=== PATIENT | female | born 1990 | race Hispanic/Latino ===

== ENCOUNTER 2017-04-24 12:29 | Emergency (ER) | payer SELFPAY ==
[2017-04-24 12:49] VITALS: BP 130/86
--- NOTE | 2017-04-24 12:51 | Emergency Department Report ---
Chief Complaint: Extremity Injury, Upper Stated Complaint: RT ARM PAIN Time Seen by Provider: 04/24/17 12:47 - HPI History of Present Illness: PT states she was at work on Sunday and she lifted a 25 lb bag of sugar. PT states an hour later, she had pain to R fa - ROS Review of Systems: - f/ c - Exam Vital Signs: Vital Signs 04/24/17 12:44 Temperature 98.3 F Pulse Rate 98 H Respiratory 18 Rate Blood Pressure 130/86 O2 Sat by Pulse 96 Oximetry Physical Exam: pt looks well, non toxic tenderness to R fa MSE screening note: Focused history and physical exam performed. Due to findings the following was ordered: xr ED Disposition for MSE Condition: Stable
--- NOTE | 2017-04-24 13:38 | XRay Report ---
RIGHT FOREARM: History: Pain after trauma. AP and lateral views of the forearm demonstrate normal mineralization and contours for this patient's age. No destructive changes are noted and the adjacent soft tissues are normal. IMPRESSION: Normal right forearm.
[2017-04-24] MEDS ORDERED: TORADOL IM ONE (14:05)
[2017-04-24] MEDS ORDERED: FLEXERIL PO ONE (14:05)
[2017-04-24] MEDS ORDERED: NORCO 7.5/325 PO ONE (14:05)
--- NOTE | 2017-04-24 15:20 | Emergency Department Report ---
Entered by JAKE MORIN, acting as scribe for CATHIE GAN PA. ED Upper Extremity Inj HPI - General Chief Complaint: Extremity Injury, Upper Stated Complaint: RT ARM PAIN Time Seen by Provider: 04/24/17 12:47 Source: patient Mode of arrival: Ambulatory Limitations: No Limitations - History of Present Illness Initial Comments: 27 year old female presents to the ED with c/o right arm pain for 3 days. Patient states she lifted a heavy box of sugar at work and about 20 minutes later she felt pain to her right forearm. Patient describes pain as sharp radiating to her posterior forearm. Patient denies , excessive bleeding , and trauma. LMP was about 2 years ago because of control in arm. patient has normal radial pulses on exam. MD Complaint: Injury to:: right, arm, wrist -: days(s) (3) Other Extremity Injury: Wrist: Right, Forearm: Right Other Injuries: none Handedness: right Place: work Severity scale (0 -10): 4 Improves With: none Worsens With: movement of extremity Context: other (lifting) Associated Symptoms: denies other symptoms, heard/felt popping sensat. denies: weakness, numbness, neck pain, suspects foreign body, nausea/vomiting - Related Data Home Medications Medication Instructions Recorded Confirmed Last Taken medroxyPROGESTERone ACETA (NF) 09/20/14 09/20/14 06/29/14 [Depo-Provera] Previous Rx's Medication Instructions Recorded Last Taken Type Clindamycin [Cleocin] 300 mg PO TID #21 capsule 09/21/14 Unknown Rx HYDROcodone/ACETAMINOPHEN [[place] 1 each PO Q6H PRN #14 tablet 09/21/14 Unknown Rx 5/325 Tablet] Promethazine [Phenergan] 25 mg PO Q6H PRN #14 tablet 09/21/14 Unknown Rx Ibuprofen [Motrin 800 MG tab] 800 mg PO Q8HR PRN #30 tablet 03/17/16 Unknown Rx Sulfamethoxazole/Trimethoprim 1 each PO BID #20 tablet 03/17/16 Unknown Rx [Bactrim DS TAB] Ketorolac [Toradol] 10 mg PO Q6H PRN #20 tablet 04/24/17 Unknown Rx methOCARBAMOL [Robaxin TAB] 500 mg PO BID #20 tab 04/24/17 Unknown Rx Allergies Allergy/AdvReac Type Severity Reaction Status Date / Time No Known Allergies Allergy Verified 03/17/16 18:55 ED Review of Systems Comment: All other systems reviewed and negative Constitutional: denies: chills, fever Eyes: denies: eye pain, eye discharge, vision change ENT: denies: ear pain, throat pain, dental pain Respiratory: denies: cough, shortness of breath, wheezing Cardiovascular: denies: chest pain, palpitations Endocrine: denies: excessive sweating Gastrointestinal: denies: abdominal pain, nausea, vomiting, diarrhea, constipation Genitourinary: denies: urgency, dysuria, frequency Musculoskeletal: denies: back pain, joint swelling, arthralgia Skin: denies: rash, lesions Neurological: denies: headache, weakness, numbness, paresthesias, abnormal gait , vertigo Psychiatric: denies: anxiety, depression Hematological/Lymphatic: denies: easy bleeding ED Past Medical Hx - Past Medical History Previous Medical History?: Yes Hx Asthma: Yes Additional medical history: Left breast cellulitis, Uterine fibroids, Cyst on left ovary, Boils under arm - Surgical History Past Surgical History?: Yes Additional Surgical History: c section ,tonsilectomy,ovarian cyst - Social History Smoking Status: Current Every Day Smoker Substance Use Type: Alcohol - Medications Home Medications: Home Medications Medication Instructions Recorded Confirmed Last Taken Type medroxyPROGESTERone ACETA (NF) 09/20/14 09/20/14 06/29/14 History [Depo-Provera] Clindamycin [Cleocin] 300 mg PO TID #21 capsule 09/21/14 Unknown Rx HYDROcodone/ACETAMINOPHEN [[place] 1 each PO Q6H PRN #14 tablet 09/21/14 Unknown Rx 5/325 Tablet] Promethazine [Phenergan] 25 mg PO Q6H PRN #14 tablet 09/21/14 Unknown Rx Ibuprofen [Motrin 800 MG tab] 800 mg PO Q8HR PRN #30 tablet 03/17/16 Unknown Rx Sulfamethoxazole/Trimethoprim 1 each PO BID #20 tablet 03/17/16 Unknown Rx [Bactrim DS TAB] Ketorolac [Toradol] 10 mg PO Q6H PRN #20 tablet 04/24/17 Unknown Rx methOCARBAMOL [Robaxin TAB] 500 mg PO BID #20 tab 04/24/17 Unknown Rx ED Physical Exam - General Limitations: No Limitations General appearance: alert, in no apparent distress - Head Head exam: Present: atraumatic, normocephalic - Eye Eye exam: Present: normal appearance, PERRL, EOMI Pupils: Present: normal accommodation. Absent: irregular - ENT ENT exam: Present: normal exam, mucous membranes moist - Neck Neck exam: Present: normal inspection, full ROM. Absent: tenderness, meningismus - Respiratory Respiratory exam: Present: normal lung sounds bilaterally. Absent: respiratory distress, wheezes, rales, rhonchi, stridor - Cardiovascular Cardiovascular Exam: Present: regular rate, normal rhythm. Absent: systolic murmur, diastolic murmur, rubs, gallop - GI/Abdominal GI/Abdominal exam: Present: soft. Absent: distended, tenderness - Extremities Exam Extremities exam: Present: full ROM (limited ROM due to pain), tenderness (mild tenderness to posterior forearm), other (mild crepidus present to posterior forearm). Absent: pedal edema - Expanded Upper Extremity Exam Right General: Present: normal inspection Shoulder Exam: Present: normal inspection, full ROM. Absent: tenderness, swelling Upper Arm exam: Present: normal inspection, full ROM. Absent: tenderness, swelling Elbow exam: Present: full ROM. Absent: tenderness, swelling, ecchymosis Forearm Wrist exam: Present: normal inspection, full ROM. Absent: tenderness, swelling, abrasion, laceration Hand Wrist exam: Present: normal inspection, full ROM. Absent: tenderness Vascular: Present: normal capillary refill, radial pulse - Back Exam Back exam: Present: normal inspection, full ROM. Absent: tenderness - Neurological Exam Neurological exam: Present: alert, oriented X3, normal gait - Psychiatric Psychiatric exam: Present: normal affect, normal mood - Skin Skin exam: Present: warm, dry, intact, normal color. Absent: rash ED Course Vital Signs 04/24/17 12:44 Temperature 98.3 F Pulse Rate 98 H Respiratory 18 Rate Blood Pressure 130/86 O2 Sat by Pulse 96 Oximetry ED Medical Decision Making - Radiology Data Radiology results: report reviewed XR right forearm normal right forearm/study. - Medical Decision Making 27 year old female presents to ED with right forearm pain. patient has normal xray study per radiologist. patient has mild crepidus on exam and mild tenderness. patient given NSAIDS and muscle relaxants and is to follow up with Dr. cassia hart MD within 2 days. patient states there is no chance of due to implantable control in upper arm. ED Disposition Clinical Impression: Forearm contusion Qualifiers: Encounter type: initial encounter Laterality: right Qualified Code(s): S50.11XA - Contusion of right forearm, initial encounter Disposition: TO HOME OR SELFCARE Is pt being admited?: No Does the pt Need Aspirin: No Condition: Stable Prescriptions: Ketorolac [Toradol] 10 mg PO Q6H PRN #20 tablet PRN Reason: Pain methOCARBAMOL [Robaxin TAB] 500 mg PO BID #20 tab Referrals: JOHN STRICKLAND MD [Staff Physician] - 2-3 Days Forms: Work/School Release Form(ED) This documentation as recorded by the MIKEL barrios PEARL,accurately reflects the service I personally performed and the decisions made by ,CATHIE GAN PA.
== END 2017-04-24 15:12 | disposition home or self-care (01) ==
LOC: ED 12:29
DX: S50.11XA Contusion of right forearm, initial encounter (principal); J45.909 Unspecified asthma, uncomplicated; F17.200 Nicotine dependence, unspecified, uncomplicated; X50.9XXA Other and unspecified overexertion or strenuous movements or postures, initial encounter; Y93.9 Activity, unspecified; Y92.9 Unspecified place or not applicable; Y99.9 Unspecified external cause status
CPT/HCPCS: 73090; 96372; 99283; J1885

== ENCOUNTER 2017-07-22 17:57 | Emergency (ER) | payer SELFPAY ==
[2017-07-22 19:09] LABS: Anion Gap 19 mmol/L; BUN/Creatinine Ratio 13; Blood Urea Nitrogen 8 mg/dL (7-17); Calcium 9.6 mg/dL (8.4-10.2); Carbon Dioxide 23 mmol/L (22-30); Glucose 100 mg/dL (65-100); Potassium 4.3 mmol/L (3.6-5.0); Sodium 138 mmol/L (137-145)
[2017-07-22 19:23] LABS: Bacteria,Urine 2+ /HPF (Negative); Bilirubin,Urine NEG (Negative); Blood,Urine MOD (Negative); Ketones,Urine 20 mg/dL (Negative); Leukocyte Esterase,Urine LG (Negative); Mucus,Urine 2+ /HPF; Nitrite,Urine NEG (Negative)
[2017-07-22 19:28] LABS: Basophils % (Auto) 0.5 % (0.0-1.8); Eosinophils % (Auto) 0.1 % (0.0-4.3); Hematocrit 45.6 % (30.3-42.9); Hemoglobin 15.8 gm/dl (10.1-14.3); Mean Corpuscular HGB Conc 35 % (30-34); Mean Corpuscular Hemoglobin 33 pg (28-32); Mean Corpuscular Volume 94 fl (79-97); Platelet Count 218 K/mm3 (140-440); Red Blood Count 4.84 M/mm3 (3.65-5.03); Red Cell Distribution Width 13.1 % (13.2-15.2); White Blood Count 19.1 K/mm3 (4.5-11.0)
[2017-07-22] MEDS ORDERED: NACL 0.9% 1000 ML 1,000 ML IV ONE (20:06)
[2017-07-22] MEDS ORDERED: ROCEPHIN/NS 1 GM/50 ML 1 GM/50 ML BAG IV ONE (20:06)
[2017-07-22] MEDS ORDERED: MOTRIN PO ONE (20:06)
[2017-07-22] MEDS ORDERED: ZOFRAN IV ONE (20:06)
[2017-07-22] MEDS ORDERED: TYLENOL PO ONE (20:06)
--- NOTE | 2017-07-22 21:42 | Emergency Department Report ---
ED Fever HPI - General Chief Complaint: Fever Stated Complaint: FEVER Time Seen by Provider: 07/22/17 19:26 - History of Present Illness Initial Comments: 27-year-old female past medical history ovarian cysts, asthma, smoking, obesity , uterine fibroids presents with complaint of 2-3 days of worsening nasal congestion. Patient intermittently complains of subjective fevers and chills and also dark colored urine. Patient denies vaginal discharge otherwise. Has nasal voice and is complaining of active congestion in her nostrils. Patient denies any recent travel denies any vomiting but does state that she feels decreased appetite. Patient is awake alert and oriented 3. Patient is accompanied by family members at bedside. Patient states she might have had slight right-sided flank pain earlier today but states that it has since resolved. Timing/Duration: intermittent Fever Severity/Quality: low grade Associated Symptoms: denies symptoms ED Review of Systems ROS: Stated complaint: FEVER Other details as noted in HPI Constitutional: fever, malaise. denies: chills Eyes: denies: eye pain, eye discharge, vision change ENT: congestion. denies: ear pain, throat pain Respiratory: denies: cough, shortness of breath, wheezing Cardiovascular: denies: chest pain, palpitations Endocrine: no symptoms reported Gastrointestinal: denies: abdominal pain, nausea, diarrhea Genitourinary: denies: urgency, dysuria, discharge Musculoskeletal: denies: back pain, joint swelling, arthralgia Skin: denies: rash, lesions Neurological: denies: headache, weakness, paresthesias Psychiatric: denies: anxiety, depression Hematological/Lymphatic: denies: easy bleeding, easy bruising ED Past Medical Hx - Past Medical History Previous Medical History?: Yes Hx Asthma: Yes Additional medical history: Left breast cellulitis, Uterine fibroids, Cyst on left ovary, Boils under arm - Surgical History Past Surgical History?: Yes Additional Surgical History: c section ,tonsilectomy,ovarian cyst - Social History Smoking Status: Current Every Day Smoker Substance Use Type: Alcohol, Marijuana - Medications Home Medications: Home Medications Medication Instructions Recorded Confirmed Last Taken Type medroxyPROGESTERone ACETA (NF) 09/20/14 09/20/14 06/29/14 History [Depo-Provera] Clindamycin [Cleocin] 300 mg PO TID #21 capsule 09/21/14 Unknown Rx HYDROcodone/ACETAMINOPHEN [[place] 1 each PO Q6H PRN #14 tablet 09/21/14 Unknown Rx 5/325 Tablet] Promethazine [Phenergan] 25 mg PO Q6H PRN #14 tablet 09/21/14 Unknown Rx Ibuprofen [Motrin 800 MG tab] 800 mg PO Q8HR PRN #30 tablet 03/17/16 Unknown Rx Sulfamethoxazole/Trimethoprim 1 each PO BID #20 tablet 03/17/16 Unknown Rx [Bactrim DS TAB] Ketorolac [Toradol] 10 mg PO Q6H PRN #20 tablet 04/24/17 Unknown Rx methOCARBAMOL [Robaxin TAB] 500 mg PO BID #20 tab 04/24/17 Unknown Rx Amoxicillin/K Clav Tab [Augmentin 1 tab PO Q12HR #14 tab 07/22/17 Unknown Rx 875 mg] Ciprofloxacin HCl [Cipro] 500 mg PO BID #14 tablet 07/22/17 Unknown Rx Fluticasone [Flonase] 1 spray NS QDAY PRN #1 bottle 07/22/17 Unknown Rx Ibuprofen [Motrin] 800 mg PO Q8HR PRN #30 tablet 07/22/17 Unknown Rx ED Physical Exam - General Limitations: No Limitations General appearance: alert, in no apparent distress - Head Head exam: Present: atraumatic, normocephalic - Eye Eye exam: Present: normal appearance, PERRL, EOMI - ENT ENT exam: Present: mucous membranes moist - Neck Neck exam: Present: normal inspection - Respiratory Respiratory exam: Present: normal lung sounds bilaterally. Absent: respiratory distress - Cardiovascular Cardiovascular Exam: Present: regular rate, normal rhythm. Absent: systolic murmur, diastolic murmur, rubs, gallop - GI/Abdominal GI/Abdominal exam: Present: soft, normal bowel sounds - Extremities Exam Extremities exam: Present: normal inspection - Back Exam Back exam: Present: normal inspection, other (patient has minimal to no right sided flank pain) - Neurological Exam Neurological exam: Present: alert, oriented X3, CN II-XII intact, normal gait - Psychiatric Psychiatric exam: Present: normal affect, normal mood - Skin Skin exam: Present: warm, dry, intact, normal color. Absent: rash ED Course Vital Signs 07/22/17 07/22/17 07/22/17 18:23 20:22 21:22 Temperature 99.8 F H Pulse Rate 102 H Respiratory 22 18 20 Rate Blood Pressure 150/91 Blood Pressure [Right] O2 Sat by Pulse 97 Oximetry 07/22/17 07/22/17 22:10 22:19 Temperature 98.3 F Pulse Rate 96 H Respiratory 20 20 Rate Blood Pressure Blood Pressure 102/65 [Right] O2 Sat by Pulse 95 95 Oximetry ED Medical Decision Making - Lab Data Result diagrams: 07/22/17 19:05 07/22/17 18:37 - Medical Decision Making A/P: Acute sinusitis, UTI, possible early pyelonephritis, leukocytosis 1-Motrin when necessary, Augmentin, Flonase 2-will give patient a course of ciprofloxacin as patient did mention she may have had one episode of right-sided flank pain. Patient has positive UA and I will cover her empirically for possible early pyelonephritis. Patient is voiding without difficulty and has normal kidney function on BNP 3-urine culture sent, blood culture sent 4- vital signs stabilized before discharge. I advised pt to return to Ed for worsened fever, chills, inability to tolerate PO fluid or food Critical care attestation.: If time is entered above; I have spent that time in minutes in the direct care of this critically ill patient, excluding procedure time. ED Disposition Clinical Impression: UTI (urinary tract infection) Qualifiers: Urinary tract infection type: site unspecified Hematuria presence: without hematuria Qualified Code(s): N39.0 - Urinary tract infection, site not specified Sinusitis, acute Qualifiers: Sinusitis location: frontal Recurrence: non-recurrent Qualified Code(s): J01.10 - Acute frontal sinusitis, unspecified Disposition: - TO HOME OR SELFCARE Is pt being admited?: No Does the pt Need Aspirin: No Condition: Stable Instructions: Urinary Tract Infection in Women (ED), Sinusitis (ED), Acute Pyelonephritis (ED) Prescriptions: Amoxicillin/K Clav Tab [Augmentin 875 mg] 1 tab PO Q12HR #14 tab Ciprofloxacin HCl [Cipro] 500 mg PO BID #14 tablet Fluticasone [Flonase] 1 spray NS QDAY PRN #1 bottle PRN Reason: Nasal Congestion Ibuprofen [Motrin] 800 mg PO Q8HR PRN #30 tablet PRN Reason: Fever Referrals: [facility] [Outside] - 3-5 Days SAMANTHA FINNEGAN MD [Staff Physician] - 3-5 Days Forms: Accompanied Note, Work/School Release Form(ED) Time of Disposition: 22:12
[2017-07-22 22:20] VITALS: BP 102/65
== END 2017-07-22 22:38 | disposition home or self-care (01) ==
LOC: ED 17:57
DX: N39.0 Urinary tract infection, site not specified (principal); J01.10 Acute frontal sinusitis, unspecified; J45.909 Unspecified asthma, uncomplicated; F12.10 Cannabis abuse, uncomplicated; F17.200 Nicotine dependence, unspecified, uncomplicated
CPT/HCPCS: 36415; 80048; 81001; 81025; 82140; 82550; 82962; 85025; 87040; 87086; 96361; 96365; 96375; 99284; J0696; J2405; J7030